=== PATIENT | female | born 1955 | race Caucasian/White ===

== ENCOUNTER 2018-10-21 10:06 | Emergency (ER) | payer OTHER ==
[2018-10-21] MEDS ORDERED: ceFAZolin 2 GM in NS 100 ML IV ONE (11:41)
--- NOTE | 2018-10-21 13:03 | EDPHY ---
H & P Time Seen by Provider: 10/21/18 11:20 HPI/ROS: HPI Right foot pain and swelling. 63-year-old female by private vehicle with her . This patient presents to the emergency department with complaint of atraumatic right foot pain and swelling involving the right dorsal aspect of her foot. She has also noticed some swelling in her right ankle and right leg. She denies fever. There is no history of trauma. She has no prior history of thromboembolic disease. ROS: Constitutional: No fever, no chills. No weakness. Respiratory: No cough. No shortness of breath. Cardiac: No chest pain, no palpitations. Musculoskeletal: No back pain. No neck pain. As above. Skin: No rashes. As above. Neurological: No headache. No focal weakness or altered sensation. Past medical history: Frontal temporal dementia, tonsillectomy, detached retina. Social history: Nonsmoker. Here with her . No alcohol. Physical Exam: General Appearance: Alert, no distress. This patient is responding to questions appropriately and in full sentences. This patient appears well- hydrated and well-nourished. Eyes: Pupils equal and round no pallor or injection. No lid edema, erythema or injection. Right lower extremity exam: She has a faint erythema with mild warmth involving the dorsum of her midfoot. There is a diffuse asymmetric swelling involving the ankle and the leg in comparison to the left lower extremity. No palpable cords, negative Homans sign. There is no tenderness on palpation of the bony aspects of the right foot and right ankle. The right lower extremity is neurovascularly intact. Neurological: Motor sensory function is grossly intact. Cranial nerves are normal. Gait is normal. Skin: Warm and dry, no rashes. As above. Extremities are symmetrical except noted. All joints range without pain or impingement. Psychiatric: No agitation. No depression. Database: EKG: Imaging: Right lower extremity ultrasound: Significant for superficial thrombophlebitis of the greater saphenous vein from the knee to the ankle. No evidence of DVT. Results were discussed with staff radiologist Dr. Dashawn Ortega. Right foot x-ray series: No evidence of osteomyelitis. No fracture, subluxation, dislocation. Interpreted by me. Procedures: Emergency department course: Triage vital signs reviewed, the patient is mildly tachycardic. Vital signs are otherwise normal. Presentation is consistent with a possible DVT versus superficial thrombophlebitis with associated early cellulitis of the dorsal aspect of the right foot. Ultrasound of the right lower extremity will be obtained. X-ray of the right foot will be obtained to evaluate for bony involvement. Patient endorses. 1:15 p.m., the patient was re-evaluated, she is resting comfortably at this time. I discussed the results of her ultrasound x-rays with her and her . Diagnosis of superficial thrombophlebitis as well as early cellulitis involving her right foot was discussed. The patient will be started on Keflex 500 mg 4 times daily for 10 days as well as Xarelto. A literature search for treatment of acute thrombophlebitis recommends systemic anticoagulation for 45 days if the thrombosis is greater than 5 cm. I discussed this with the patient and her . She agrees with this treatment plan. She currently does not have a primary care physician as she recently moved from [place]. I will have her follow up with [facility] for establishment of a primary care physician relationship and ongoing care. Return to emergency department precautions were thoroughly reviewed with her. All of her questions were answered. She was discharged from the emergency department in good condition with her . Differential Diagnosis: The differential diagnosis on this patient includes but is not limited to right lower extremity DVT, superficial thrombophlebitis, right foot cellulitis. This represents a partial list of diagnoses considered. These considerations are based on history, physical exam, past history, reassessment and diagnostic testing. Smoking Status: Never smoked Constitutional: Initial Vital Signs Temperature (C) 36.7 C 10/21/18 10:28 Heart Rate 110 H 10/21/18 10:28 Respiratory Rate 18 10/21/18 10:28 Blood Pressure 129/93 H 10/21/18 10:28 O2 Delivery Mode Room Air Allergies/Adverse Reactions: No Known Allergies Allergy (Verified 10/21/18 10:48) Home Medications: Medication Instructions Recorded Cephalexin [Keflex (*)] 500 mg PO Q6 10 Days cap 10/21/18 Rivaroxaban [Xarelto 15mg (*)] 15 mg PO BID #42 tab 10/21/18 Medical Decision Making - Data Points Medications Given: Discontinued Medications Cephalexin HCl (Keflex) 500 mg PO EDNOW ONE PRN Reason: Protocol Stop: 10/21/18 13:14 Last Admin: 10/21/18 13:30 Dose: 500 mg Cefazolin Sodium 2 gm/ Sodium (Chloride) 100 mls @ 200 mls/hr IV EDNOW ONE PRN Reason: Protocol Stop: 10/21/18 12:10 Last Admin: 10/21/18 13:43 Dose: Not Given Rivaroxaban (Xarelto) 15 mg PO EDNOW ONE Stop: 10/21/18 13:14 Last Admin: 10/21/18 13:30 Dose: 15 mg Departure - Departure Disposition: Home, Routine, Self-Care Clinical Impression: Superficial thrombophlebitis of right leg, Cellulitis of right foot Condition: Good Instructions: Cellulitis (ED), Superficial Thrombophlebitis (ED) Additional Instructions: Read and follow provided instructions. Call the offices of [facility] as discussed on Tuesday for a follow-up appointment on Tuesday or Tuesday. This is both to establish a primary care physician relationship which you need as well as continued management of your right leg and foot condition. You also need to have basic blood work done to assess your kidney function and to monitor ongoing treatment with anticoagulation medication. Take medication as prescribed through entire course of treatment. You will receive prescriptions for 2 medications, cephalexin is an antibiotic and rivaroxaban is a blood thinning medication to treat the blood clot in your right leg. Return to the emergency department for worsening pain, swelling, discoloration of your right foot, fever or other serious concerns. Referrals: [facility] [Outside] - As per Instructions Prescriptions: Cephalexin [Keflex (*)] 500 mg PO Q6 10 Days cap Rivaroxaban [Xarelto 15mg (*)] 15 mg PO BID #42 tab
[2018-10-21] MEDS ORDERED: RIVAROXABAN 15 MG TAB PO ONE (13:13)
[2018-10-21] MEDS ORDERED: CEPHALEXIN 500 MG CAP PO ONE (13:13)
[2018-10-21 14:11] VITALS: BP 144/98
== END 2018-10-21 13:38 | disposition home or self-care (01) ==
LOC: CED 10:06
DX: I80.01 Phlebitis and thrombophlebitis of superficial vessels of right lower extremity (principal); L03.115 Cellulitis of right lower limb; F03.90 Unspecified dementia, unspecified severity, without behavioral disturbance, psychotic disturbance, mood disturbance, and anxiety
CPT/HCPCS: 73620-PO; 93971-PO; 99284-ER